=== PATIENT | male | born 1950 | race Caucasian/White ===

== ENCOUNTER 2024-07-18 19:12 | Inpatient (IN) | payer OTHER, MEDICARE ==
[~2024-07-18] VITALS: Ht 167.6 cm; Wt 79.0 kg
--- NOTE | 2024-07-18 20:53 | ELECTROCARDIOGRAPH REPORT ---
[facility] Test Date: 2024-07-18 Test Time: 20:50:32 Pat Name: KERI RÍOS Department: [facility] Patient ID: [facility]-[id number] Room: Gender: M Bicycle Mechanic: MITCHEL : 1950 Requested By: ADITYA FUNG Order Number: [id number] Reading MD: Dr. Aditya Fung Measurements Intervals [place] Rate: 89 P: 40 [place]: 139 QRS: 115 QRSD: 132 T: 6 QT: 409 QTc: 498 Interpretive Statements Atrial-paced complexes RBBB and LPFB Electronically Signed On 07-18-2024 21:38:[address] Aditya Fung Please click the below link to view image of tracing.
[2024-07-18 21:04] LABS: BASOPHILS % (AUTO) 0.1 % (0-1); EOSINOPHILS % (AUTO) 0 % (0-6); HEMATOCRIT 29.2 % (42.0-52.0); HEMOGLOBIN 9.8 g/dl (14.0-17.9); LYMPHOCYTES # (AUTO) 1.1 X10'3 (1.1-4.8); MEAN CORPUSCULAR HEMOGLOBIN 27.4 PG (27.0-31.0); MEAN CORPUSCULAR HGB CONC 33.5 g/dL (33.0-36.5); MEAN CORPUSCULAR VOLUME 81.8 FL (78-98); MEAN PLATELET VOLUME 8.2 FL (7.4-10.4); MONOCYTES # (AUTO) 1.1 X10'3 (0-0.9); MONOCYTES % (AUTO) 6.9 % (2-12); NEUTROPHILS # (AUTO) 13.2 X10'3 (1.8-7.7); PLATELET COUNT 256 X10'3 (140-440); RED BLOOD COUNT 3.57 X10'6 (4.70-6.10); RED CELL DISTRIBUTION WIDTH 13.6 % (11.5-14.5); WHITE BLOOD COUNT 15.3 X10'3 (4.5-11.0)
--- NOTE | 2024-07-18 21:09 | RADIOLOGY REPORT ---
CHEST RADIOGRAPH Indication: aloc Technique: Single frontal view of the chest was obtained Comparison: None FINDINGS: Lines and Tubes: None Lungs: No focal consolidation. Large gas distended hiatal hernia. Pleura: No effusion. No pneumothorax. Cardiomediastinal contours: Unremarkable Bones: No acute osseous abnormality. IMPRESSION: 1. No acute cardiopulmonary disease. 2. Gas distended hiatal hernia.
[2024-07-18 21:14] LABS: ALANINE AMINOTRANSFERASE 39 U/L (12-78); ALBUMIN 3.2 G/DL (3.4-5.0); ALBUMIN/GLOBULIN RATIO 1.1 (1.1-1.5); ALKALINE PHOSPHATASE 80 IU/L (46-116); ANION GAP 7 (8-16); ASPARTATE AMINO TRANSFERASE 24 U/L (10-37); BILIRUBIN,DIRECT 0.2 MG/DL (0-0.3); BILIRUBIN,TOTAL 0.5 MG/DL (0.1-1.0); BLOOD UREA NITROGEN 37 MG/DL (7-18); CALCIUM 8.5 MG/DL (8.5-10.1); CHLORIDE 103 MMOL/L (99-107); GLUCOSE 120 MG/DL (70-104); POTASSIUM 3.6 MMOL/L (3.5-5.1); SODIUM 138 MMOL/L (135-145); TOTAL CARBON DIOXIDE 27.6 MMOL/L (24-32); TOTAL PROTEIN 6.2 G/DL (6.4-8.2); eCRCL 59 ML/MIN; eGFR 73 ML/MIN
[2024-07-18 21:18] LABS: ETHANOL < 10 MG/DL (<10)
--- NOTE | 2024-07-18 21:30 | RADIOLOGY REPORT ---
Clinical History aloc Comparison None Technique: All CT scans at this medical facility are performed using dose modulation techniques as appropriate t o a performed exam including the following: Automated exposure control was utilized; adjustment of th e mA and/or kV according to patient size; and use of iterative reconstruction technique. All CT studies are reported to the Dose Index Registry of the [employer]. Without Contrast Radiation Dose: CTDI (mGy): 50.53; DLP (mGy-cm): 925.53 KERI RÍOS, [id number] FINDINGS: Parenchyma: No evidence for acute hemorrhage, mass or midline shift. Periventricular hypodensities a re present bilaterally, consistent with chronic microvascular ischemic changes. Extra-axial spaces: Within normal limits. Ventricles: Mildly enlarged, consistent with central atrophy. Sulci: Prominent size, consistent with generalized atrophy. Mass effect: Within normal limits. Basilar cisterns: Within normal limits. Calvarium: Within normal limits. Facial bones: Within normal limits. Orbits: Within normal limits. Sinuses/mastoids: Within normal limits. Soft tissues: Within normal limits. IMPRESSION: No evidence for acute intracranial findings. Changes consistent with moderate chronic microvascular ischemic changes and cortical atrophy. Calvarium intact. This report was electronically signed by Donal Hernandez MD on 07/18/2024 9:26:57 PM.
--- NOTE | 2024-07-18 22:07 | Physician Documentation ---
History of Present Illness ~ Chief Complaint: ALOC Stated Complaint: ALTURED Time Seen by MD: 22:04 OK to notify your PCP?: Yes Source: patient, RN/MD, EMS, EMS notes reviewed, other Mode of Arrival: EMS Exam Limitations: clinical condition (altered) HPI 73 year old male, on gabapentin for chronic pain, brought to the ED via EMS from home due to concerns of altered mental status, seemingly noted by scientist engineer according to EMS run sheet. Patient currently describes being very tired because he has been awake for four days; apparently he has a history of insomnia. He also reports recent black stools and tangentially describes accidentally eating glass, but does not report when he did this. He denies heavy alcohol or NSAID consumption. He was also concerned that he was poison four days ago but is unable to elaborate further. Patient states he lives alone with his cat. Unable to obtain complete history of present illness due to patient's altered mental status Airport Location Manager's phone number: [phone] Medication Reconciliation Allergies: Coded Allergies: No Known Allergies (Unverified , 07/18/24) Scheduled Gabapentin (Gabapentin), 1 CAP PO HS, (Reported) Quetiapine Fumarate* (Seroquel*), 1 TAB PO HS, (Reported) Past Medical History Past Medical History: Chronic Pain Past Surgical History: no surgical history Alcohol Use: None Drug Use: none Lives In: Home Unable to obtain complete PMH: altered mental status Review of Systems Unable to obtain complete ROS: altered mental status Physical Exam Vital Signs: RN Vital Signs have been reviewed: Yes, Temperature: 97.4, Source: Oral, Heart Rate: 91, Respiratory Rate: 19, BP: 137/85, Pulse Oximetry: 100, Weight: 79.000 Pulse Oximetry Reflects: adequate oxygenation Physical Exam General: The patient is well developed, well nourished, nontoxic appearing and is in no acute distress. Skin: [place], warm and dry with no rashes. HEENT: Head was normocephalic and atraumatic. Chest: Clear to auscultation bilaterally without wheezes, rales or rhonchi. No accessory muscle use. No dullness to percussion. Heart: Rate regular and rhythmic. S1, S2. No murmurs. Palpation of the chest wall was normal. No rubs or thrills. Abdomen: Soft, nontender and nondistended. Positive bowel sounds. No guarding or rebound. 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 Extremities: No cyanosis, clubbing or edema. The patient moves all ex tremities. Pulses were equal and symmetric. Neurologic: Some confusion. Motor and sensation grossly intact. Cranial nerves II-XII grossly intact. A & O x3. Progress Progress Note 2256: Hospitalist paged. 2304: Admission orders placed by internal medicine resident. Results/Orders Reviewed/noted all lab results: Yes Results/Orders Medications Received in ER Medications (Trade) Dose Ordered Sig/Agnieszka Route PRN Reason Start Time Stop Time Status Last Admin Dose Admin Sodium Chloride 1,000 ml @ 200 mls/hr Q5H ONCE IV 07/18/24 22:25 07/19/24 03:24 07/18/24 23:19 200 MLS/HR (Protonix 40mg IV) 80 mg ONCE ONCE IV 07/18/24 22:45 07/18/24 22:46 DC 07/18/24 23:20 80 MG Vital Signs 07/18/24 07/18/24 07/18/24 19:15 19:25 19:36 Temp 97.2 97.4 Pulse 94 91 Resp 12 15 19 B/P (MAP) 142/84 137/85 (102) Pulse Ox 99 100 Laboratory Tests Test 07/18/24 20:52 07/18/24 22:20 White Blood Count 15.3 H Red Blood Count 3.57 L Hemoglobin 9.8 L Hematocrit 29.2 L Mean Corpuscular Volume 81.8 Mean Corpuscular Hemoglobin 27.4 Mean Corpuscular Hemoglobin Concent 33.5 Red Cell Distribution Width 13.6 Platelet Count 256 Mean Platelet Volume 8.2 Neutrophils (%) (Auto) 86.0 H Lymphocytes (%) (Auto) 7.0 L Monocytes (%) (Auto) 6.9 Eosinophils (%) (Auto) 0 Basophils (%) (Auto) 0.1 Neutrophils # (Auto) 13.2 H Lymphocytes # (Auto) 1.1 Monocytes # (Auto) 1.1 H Eosinophils # (Auto) 0.0 Basophils # (Auto) 0.0 CBC Comment Prothrombin Time 10.9 INR International Normalized Ratio 1.1 Activated Partial Thromboplast Time 22 Coagulation Comments Sodium Level 138 Potassium Level 3.6 Chloride Level 103 Carbon Dioxide Level 27.6 Anion Gap 7 L Blood Urea Nitrogen 37 H Creatinine 1.00 Estimated GFR/1.73 m2 73 BUN/Creatinine Ratio 37.0 H Glucose Level 120 H Calcium Level 8.5 Magnesium Level 2.0 Total Bilirubin 0.5 Direct Bilirubin 0.2 Aspartate Amino Transf (AST/SGOT) 24 Alanine Aminotransferase (ALT/SGPT) 39 Alkaline Phosphatase 80 Troponin I High Sensitivity 7 Total Protein 6.2 L Albumin 3.2 L Globulin 3.0 Albumin/Globulin Ratio 1.1 Lipase 18 Chemistry Comments Ethyl Alcohol Level < 10 Stool Occult Blood Positive H EKG/XRAY/CT/US/VASC/MRI EKG : Additional Comment Test Date: 2024-07-18 Test Time: 20:50:32 Pat Name: KERI RÍOS Department: [facility] Patient ID: [facility]-[id number] Room: Gender: Farm Operations Manager: : 1950 Requested By: PATRICK MENDOSA Order Number: [id number] Reading MD: Dr. Patrick Mendosa Measurements Intervals [place] Rate: 89 P: 40 [place]: 139 QRS: 115 QRSD: 132 T: 6 QT: 409 QTc: 498 Interpretive Statements Atrial-paced complexes RBBB and LPFB Electronically Signed On 07-18-2024 21:38:[address] Patrick Mendosa (interpreted by me) Chest X-Ray : Interpreted By: radiologist Views: 1 VIEW Additional Comments CHEST RADIOGRAPH Indication: aloc Technique: Single frontal view of the chest was obtained Comparison: None FINDINGS: Lines and Tubes: None Lungs: No focal consolidation. Large gas distended hiatal hernia. Pleura: No effusion. No pneumothorax. Cardiomediastinal contours: Unremarkable Bones: No acute osseous abnormality. IMPRESSION: 1. No acute cardiopulmonary disease. 2. Gas distended hiatal hernia. Reviewed by tn, Dr. Mendosa CT #1: Interpreted By: radiologist CT: head With Contrast?: No Impression Clinical History aloc Comparison None Technique: All CT scans at this medical facility are performed using dose modulation techniques as appropriate to a performed exam including the following: Automated exposure control was utilized; adjustment of the mA and/or kV according to patient size; and use of iterative reconstruction technique. All CT studies are reported to the Dose Index Registry of the [employer]. Without Contrast Radiation Dose: CTDI (mGy): 50.53; DLP (mGy-cm): 925.53 RÍOS KERI, [id number] FINDINGS: Parenchyma: No evidence for acute hemorrhage, mass or midline shift. Periventricular hypodensities are present bilaterally, consistent with chronic microvascular ischemic changes. Extra-axial spaces: Within normal limits. Ventricles: Mildly enlarged, consistent with central atrophy. Sulci: Prominent size, consistent with generalized atrophy. Mass effect: Within normal limits. Basilar cisterns: Within normal limits. Calvarium: Within normal limits. Facial bones: Within normal limits. Orbits: Within normal limits. Sinuses/mastoids: Within normal limits. Soft tissues: Within normal limits. IMPRESSION: No evidence for acute intracranial findings. Changes consistent with moderate chronic microvascular ischemic changes and cortical atrophy. Calvarium intact. This report was electronically signed by Donal Hernandez MD on 07/18/2024 9:26:57 PM. Reviewed by me (Dr. Mendosa) CT #2: Interpreted By: radiologist CT: abdomen/pelvis With Contrast?: No Impression Clinical History ABD PAIN, possible glass foreign body Comparison None Technique: All CT scans at this medical facility are performed using dose modulation techniques as appropriate to a performed exam including the following: Automated exposure control was utilized; adjustment of the mA and/or kV according to patient size; and use of iterative reconstruction technique. All CT studies are reported to the Dose Index Registry of the [employer]. Contrast: OMNIPAQUE 300, 100ML Radiation Dose: CTDI (mGy): 20.46; DLP (mGy-cm): 1067.88 KERI RÍOS, [id number] FINDINGS: Lower chest: Partially imaged large gastric hiatus hernia containing the entire stomach as well as the pancreatic tail and part of the body associated with adjacent bilateral pulmonary atelectasis. Small left pleural effusion Liver: Tiny subcentimeter hepatic cystic lesions. Gallbladder: Unremarkable Pancreas: Partially imaged large gastric hiatus hernia containing the entire stomach as well as the pancreatic tail and part of the body . Diffuse pancreatic fatty infiltration Spleen: Unremarkable Adrenals:Unremarkable Kidneys: 4 mm nonobstructive right mid renal pole calcified calculus. Right renal cyst Stomach:Partially imaged large gastric hiatus hernia containing the entire stomach as well as the pancreatic tail and part of the body . Evaluation for volvulus cannot be fully performed due to incomplete imaging of the stomach Bowel:Evaluation of the bowel is limited and incomplete due to lack of oral contrast. No hyperdense foreign body is detected The small bowel is grossly unremarkable. Diverticulosis of the left hemicolon with no evidence of acute diverticulitis. Normal appendix Urinary bladder:Unremarkable Reproductive organs:No pelvic masses Peritoneum, retroperitoneum, lymphadenopathy:Unremarkable Vascular structures:Unremarkable Abdominal wall: Tiny uncomplicated fat-containing umbilical hernia Musculoskeletal:No acute osseous abnormality. Degenerative changes of the skeleton. L4 superior vertebral endplate compression fracture IMPRESSION: No detectable hyperdense foreign body. Partially imaged large gastric hiatus hernia containing the entire stomach and the pancreatic head and tail This report was electronically signed by Jona Wright MD on 07/19/2024 12:31:41 AM. Reviewed by me, Dr. Mendosa. Departure Time of Disposition: 22:56 Disposition: ADMITTED INPATIENT Admitted to Inpatient Unit: yes, to hospitalist Impression: Primary Impression: Upper GI bleeding Additional Impressions: Symptomatic anemia Altered mental status Qualified Codes: R41.82 - Altered mental status, unspecified Generalized weakness Condition: Guarded Signature Scribe Signature: Scribed for Patrick Mendosa MD by Ken Sumner . 07/18/24 22:13 Attestation: The note accurately reflects work and decisions made by me.Patrick Mendosa MD 07/18/24 22:06 PATRICK MENDOSA MD July 18, 2024 22:07 KEN GONZALEZ July 18, 2024 22:18
[2024-07-18] MEDS ORDERED: pantoprazole 40mg IV 80 MG in normal saline 100ml IV soln 100 ML IV ONE (22:25)
[2024-07-18 22:30] LABS: OCCULT BLOOD STOOL POSITIVE (Neg)
[2024-07-18] MEDS ORDERED: iohexol 300mg/ml 100ml inj. ONE (22:31)
[2024-07-18 22:37] LABS: LIPASE 18 U/L (16-77)
[2024-07-18 22:41] LABS: APTT 22 SECONDS (22-32); INR 1.1 INR; PROTHROMBIN TIME 10.9 SECONDS (9.0-12.0)
[2024-07-18] MEDS ORDERED: ondansetron/PF 4mg/2ml inj IV PRN (23:10)
[2024-07-18] MEDS ORDERED: morphine 2 MG/ML inj. syringe IV PRN (23:10)
[2024-07-18] MEDS ORDERED: acetaminophen 325mg tablet PO PRN (23:10)
[2024-07-18] MEDS ORDERED: mag hydrox/Alum hydrox/simeth 30ml oral suspension PO PRN (23:10)
[2024-07-18] MEDS ORDERED: potassium Cl 40MEQ/1/2NS 520ml 520 ML IV PRN (23:10)
[2024-07-18] MEDS ORDERED: magnesium Cl slow-release 64mg tablet PO PRN (23:10)
[2024-07-18] MEDS ORDERED: magnesium sulf-water 2g/50mL 50 ML IV PRN (23:10)
[2024-07-18] MEDS ORDERED: potassium Cl 20 mEq SR tablet PO PRN (23:10)
[2024-07-18] MEDS ORDERED: magnesium sulf-water 4G/100mL 100 ML IV PRN (23:10)
[2024-07-18] MEDS ORDERED: magnesium hydroxide 30ml (MOM) UD suspension PO PRN (23:10)
[2024-07-18] MEDS: normal saline 1000ml 1,000 ML IV ONE (23:19)
[2024-07-18] MEDS: pantoprazole 40 MG vial IV ONE (23:20)
[2024-07-18] MEDS ORDERED: GABA-535 PO (23:59)
[2024-07-19] VITALS (25 sets, daily range): BP systolic 90–130; BP diastolic 37–76; PULSE 70–94; RESP 11–20; TEMP 97.1–98.2; O2SAT 18–99
[2024-07-19] MEDS ORDERED: QUET-1 PO
--- NOTE | 2024-07-19 00:34 | RADIOLOGY REPORT ---
Clinical History ABD PAIN, possible glass foreign body Comparison None Technique: All CT scans at this medical facility are performed using dose modulation techniques as appropriate t o a performed exam including the following: Automated exposure control was utilized; adjustment of th e mA and/or kV according to patient size; and use of iterative reconstruction technique. All CT studies are reported to the Dose Index Registry of the [employer]. Contrast: OMNIPAQUE 300, 100ML Radiation Dose: CTDI (mGy): 20.46; DLP (mGy-cm): 1067.88 KERI RÍOS, [id number] FINDINGS: Lower chest: Partially imaged large gastric hiatus hernia containing the entire stomach as well as th e pancreatic tail and part of the body associated with adjacent bilateral pulmonary atelectasis. Sma ll left pleural effusion Liver: Tiny subcentimeter hepatic cystic lesions. Gallbladder: Unremarkable Pancreas: Partially imaged large gastric hiatus hernia containing the entire stomach as well as the p ancreatic tail and part of the body . Diffuse pancreatic fatty infiltration Spleen: Unremarkable Adrenals:Unremarkable Kidneys: 4 mm nonobstructive right mid renal pole calcified calculus. Right renal cyst Stomach:Partially imaged large gastric hiatus hernia containing the entire stomach as well as the skinner creatic tail and part of the body . Evaluation for volvulus cannot be fully performed due to incompl ete imaging of the stomach Bowel:Evaluation of the bowel is limited and incomplete due to lack of oral contrast. No hyperdense foreign body is detected The small bowel is grossly unremarkable. Diverticulosis of the left hemicol on with no evidence of acute diverticulitis. Normal appendix Urinary bladder:Unremarkable Reproductive organs:No pelvic masses Peritoneum, retroperitoneum, lymphadenopathy:Unremarkable Vascular structures:Unremarkable Abdominal wall: Tiny uncomplicated fat-containing umbilical hernia Musculoskeletal:No acute osseous abnormality. Degenerative changes of the skeleton. L4 superior chato tebral endplate compression fracture IMPRESSION: No detectable hyperdense foreign body. Partially imaged large gastric hiatus hernia containing the entire stomach and the pancreatic head an d tail This report was electronically signed by Jona Wright MD on 07/19/2024 12:31:41 AM.
[2024-07-19] MEDS: morphine 2 MG/ML inj. syringe IV PRN (01:52)
[2024-07-19] MEDS: pantoprazole 40MG/NS 100ML BAG 100 ML IV SCH (02:00)
--- NOTE | 2024-07-19 02:38 | HISTORY AND PHYSICAL-Residence ---
History & Physical Providers to CC Resident Creating Document: DAMIAN FLORESISIDORORONNY YVAN CC: LATOYA FLOREZ MD ~ History of Present Illness Reason for Admit\Complaint: Dark stools History of Present Illness Patient is a 73-year-old male with history of prediabetes and GERD who came to the ED due to dark stools. Patient reports that for the past four days he has been feeling sick described as generalized weakness, stomach pain, acid reflux, and episodes of diarrhea. Two days ago he reports he started with black tarry stools with two large episodes today. He denies the use of NSAIDs, blood thinners or significant alcohol intake. He also denies fevers, chills, shortness of breath, chest pain, palpitations or any other subjective symptoms. Allergies: Coded Allergies: No Known Allergies (Unverified , 07/18/24) Home Medications Home Medications Active Reported Seroquel* (Quetiapine Fumarate) 100 Mg Tablet 1 Tab PO HS 30 Days Gabapentin 400 Mg Capsule 1 Cap PO HS 30 Days Past Medical History Past Medical History Prediabetes GERD Past Surgical History Surgical History Comment Bilateral eye surgery as a baby Right wrist ganglion cyst x2 Family History Family History: FH: breast cancer MOTHER Past Social History Smoking: Non-Smoker Alcohol Use: None Drug Use: None Lives with: Alone Lives In: Home ROS ROS All systems were reviewed and found negative except for pertinent positives mentioned in HPI Unable to obtain: altered mental status Exam Vitals: Vital Signs Date Time Temp Pulse Resp B/P (MAP) Pulse Ox O2 Delivery O2 Flow Rate FiO2 07/19/24 02:00 90 07/19/24 00:11 97.4 12 138/90 (106) 98 General: General: awake, alert oriented to place, time, and person HEENT: No pallor present, no icterus, moist mucous membranes Neck: No masses and tenderness Resp: Unlabored. Lungs clear to auscultation bilaterally. Heart: Regular Rate and rhythm, normal S1 and S2 without murmur, rub or gallop Abdomen: Soft and mildly tender in epigastrium, no organomegaly, no guarding and rigidity, bowel sounds present Neuro: No weakness in the upper and lower limb muscles, power of the muscles 5/5 bilateral upper and lower muscles, knee reflex present bilaterally. Cranial nerves intact Extremities: No cyanosis,clubbing or edema Skin: Warm and Dry. No lesions Diagnostic Data Last Recorded Lab Results: [id number]/18/[id number] Diagnostic Data: Laboratory Tests Test 07/18/24 20:52 Prothrombin Time 10.9 SECONDS (9.0-12.0) INR International Normalized Ratio 1.1 INR Activated Partial Thromboplast Time 22 SECONDS (22-32) Coagulation Comments Advance Care Planning Advanced Care plannin - 30 Minutes Additional Plan Patient is a 73-year-old male with history of prediabetes and GERD who came to the ED due to dark stools. Admitted for evaluation and management of upper GI bleed. GI bleed, likely upper Normocytic anemia History of GERD Patient with epigastric pain and black tarry stools along with constitutional symptoms No significant history of NSAID, blood thinners or alcohol intake Vitals are stable Hemoglobin is 9.8 Stool occult blood is positive Started on Protonix drip in ED Will consult GI in a.m. NPO after midnight Code Status: Full code GI prophylaxis: Protonix drip Nutrition: NPO PT: Ordered Prognosis: Guarded Disposition: Admit to ortho floor with tele monitoring. Pending GI consult Rnony Simpson MD Internal Medicine Resident PGY-1 Attestation Discussed with resident team Agree with assessment and plan spent 35 minute in care Date of Service: July 19, 2024 Billing Provider: LATOYA FLOREZ MD, LEONARDO LUIS July 19, 2024 02:38 LATOYA FLOREZ MD July 19, 2024 03:24
[2024-07-19 05:02] LABS: BASOPHILS % (AUTO) 0.1 % (0-1); EOSINOPHILS % (AUTO) 0.1 % (0-6); HEMATOCRIT 23.2 % (42.0-52.0); HEMOGLOBIN 7.9 g/dl (14.0-17.9); LYMPHOCYTES # (AUTO) 1.2 X10'3 (1.1-4.8); MEAN CORPUSCULAR VOLUME 82.3 FL (78-98); MEAN PLATELET VOLUME 8.3 FL (7.4-10.4); MONOCYTES # (AUTO) 0.7 X10'3 (0-0.9); NEUTROPHILS # (AUTO) 6.6 X10'3 (1.8-7.7); NEUTROPHILS % (AUTO) 77.8 % (42-75); PLATELET COUNT 190 X10'3 (140-440); RED BLOOD COUNT 2.82 X10'6 (4.70-6.10); RED CELL DISTRIBUTION WIDTH 13.3 % (11.5-14.5); WHITE BLOOD COUNT 8.5 X10'3 (4.5-11.0)
[2024-07-19 05:20] LABS: ALANINE AMINOTRANSFERASE 32 U/L (12-78); ALBUMIN 2.6 G/DL (3.4-5.0); ALKALINE PHOSPHATASE 65 IU/L (46-116); ANION GAP 7 (8-16); ASPARTATE AMINO TRANSFERASE 20 U/L (10-37); BILIRUBIN,TOTAL 0.4 MG/DL (0.1-1.0); BLOOD UREA NITROGEN 29 MG/DL (7-18); BUN/CREATININE RATIO 33.7 (10.0-20.0); CALCIUM 7.9 MG/DL (8.5-10.1); CHLORIDE 108 MMOL/L (99-107); CREATININE 0.86 MG/DL (0.60-1.10); GLUCOSE 105 MG/DL (70-104); MAGNESIUM 1.9 MG/DL (1.5-2.4); POTASSIUM 3.7 MMOL/L (3.5-5.1); SODIUM 141 MMOL/L (135-145); TOTAL CARBON DIOXIDE 26.5 MMOL/L (24-32); TOTAL PROTEIN 5.1 G/DL (6.4-8.2); eCRCL 69 ML/MIN; eGFR 87 ML/MIN
[2024-07-19] MEDS: K and/or MAG REPLACEMENT MC SCH (08:00)
[2024-07-19] MEDS: docusate sod 100mg capsule PO SCH (08:04)
[2024-07-19 08:20] LABS: BILIRUBIN,URINE NEGATIVE (Neg); CLARITY,URINE CLEAR (Clear); COLOR,URINE YELLOW (Yellow); GLUCOSE, URINE NEGATIVE (Neg); KETONES,URINE NEGATIVE (Neg); LEUKOCYTE ESTERASE ,URINE NEGATIVE (Neg); NITRITES, URINE NEGATIVE (Neg); OCCULT BLOOD,URINE NEGATIVE (Neg); PROTEIN,URINE NEGATIVE (Neg); UROBILINOGEN,URINE 0.2 E.U/dL (0.2-1.0)
[2024-07-19 08:32] LABS: URINE AMPHETAMINE SCREEN NEGATIVE (Neg); URINE BARBITUATE SCREEN NEGATIVE (Neg); URINE BENZODIAZEPINES SCREEN NEGATIVE (Neg); URINE CANNABINOID SCREEN NEGATIVE (Neg); URINE COCAINE SCREEN NEGATIVE (Neg); URINE METHADONE SCREEN NEGATIVE (Neg); URINE OPIATE SCREEN POSITIVE (Neg); URINE PHENCYCLIDINE SCREEN NEGATIVE (Neg)
[2024-07-19 08:33] LABS: UA COLLECTION TYPE CLN CATCH MIDSTREAM
--- NOTE | 2024-07-19 10:53 | PROGRESS NOTE- Residence ---
Progress Note - Resident Providers to CC Resident Creating Document: BENEDICTO HERNÁNDEZ, VERITO ~ Antibiotic Timeout Antibiotic Ordered?: No Subjective Primary care physician: [facility]. Marketing Strategy Manager: Tesfaye Pabon ([phone]) The patient has been evaluated at bedside. The patient reports significant improvement of symptoms. Objective Vital Signs Date Time Temp Pulse Resp B/P (MAP) Pulse Ox O2 Delivery O2 Flow Rate FiO2 07/19/24 02:00 90 07/19/24 00:20 18 129/37 (67) 97 Room Air 07/19/24 00:11 97.4 Physical exam: General: Well alert, well oriented, not confused, not agitated, not in acute distress, well cooperated during the physical. HEENT: Conjunctive are pale, sclerae clear, no icterus, pupil is equal in both sides, reactive to light, no ear discharge, no pharyngeal erythema or an edema. Neck: Supple, no JVD, no lymphadenopathy and thyromegaly. Chest: Equal air entry on both lungs, no additional sounds no rhonchi no wheezing at the moment. Cardiovascular: S1-S2 regular sinus rhythm and, regular rate, no gallops, no rubs, no murmurs Abdomen: No visible peristalsis, Bowel sounds present on auscultation, soft, mild tenderness at the level of the epigastrium, no guarding, no rigidity Extremities: No obvious deformities, no pitting edema bilaterally, capillary refill intact, peripheral pulsations are intact on both sides Central Nervous System: No focal neurological deficits, no motor or sensory weakness in all 4 extremities, could move all 4 extremities, 2+ deep tendon reflexes, negative Babinski. Musculoskeletal: No joint swelling, deformities, inflammations, and no scoliosis and back tenderness Skin: Warm and dry. Result Diagram: 07/19/24 0437 07/19/24 0437 Coagulation Studies Laboratory Tests Test 07/18/24 20:52 Prothrombin Time 10.9 SECONDS (9.0-12.0) INR International Normalized Ratio 1.1 INR Activated Partial Thromboplast Time 22 SECONDS (22-32) Coagulation Comments Assessment Assessment 73-year-old male patient came to the hospital with chief complaint of melena. Plan Plan Severe anemia: Normocytic normochromic anemia: GI bleed secondary to gastric ulcers: History of GERD Patient with epigastric pain and black tarry stools along with constitutional symptoms No significant history of NSAID, blood thinners or alcohol intake. Hemoglobin and hematocrit stable. Stool occult blood is positive Continue Protonix drip. Cut Out Operator, Dr. Sotomayor consulted. Impression normal esophagus, nonbleeding gastric ulcers with pigmented material. Biopsied, normal examined duodenum. Nonbleeding gastric ulcer with no stigmata of bleeding. Biopsied. Recommended resume previous diet, continue drip for 24 hours. Pathology follow- up within one week with a developmental mathematics instructor. Omeprazole 40 mg p.o. b.i.d. for three months or until next EGD which we will be in two months for surveillance based on pathology results. Transfuse if hemoglobin levels dropped below seven. Hyperglycemia: Prediabetes: Glucose levels 120. Follow-up hemoglobin A1c. Code status: Full code DVT prophylaxis: SCDs Analgesia/sedation: Morphine Line/tube: PIV GI prophylaxis: Protonix Nutrition: Full liquid diet. PT: Yes Prognosis: Guarded Disposition: The patient underwent EGD today. Showing gastric ulcers. We will continue Protonix drip for 24 hours. Pending physical therapy evaluation. Benedicto Hayes Internal Medicine Resident [facility] Date of Service: July 19, 2024 Billing Provider: ALVA ESCALERA MD, FRANCO LUIS, RES July 19, 2024 10:53
[2024-07-19 11:49] LABS: RED CELL DISTRIBUTION WIDTH 13.3 % (11.5-14.5)
[2024-07-19 11:50] LABS: HEMATOCRIT 24.9 % (42.0-52.0); HEMOGLOBIN 8.2 g/dl (14.0-17.9); MEAN CORPUSCULAR HEMOGLOBIN 27.4 PG (27.0-31.0); MEAN PLATELET VOLUME 9.3 FL (7.4-10.4); PLATELET COUNT 181 X10'3 (140-440); WHITE BLOOD COUNT 9.4 X10'3 (4.5-11.0)
[2024-07-19 12:01] LABS: HEMOGLOBIN A1C 5.4 % (4.5-6.2)
[2024-07-19 12:10] LABS: THYROID STIMULATING HORMONE 1.49 ulU/ml (0.34-4.50)
[2024-07-19] MEDS ORDERED: MIDAZolam 1 MG/ML 5ML VIAL ONE (14:05)
[2024-07-19] MEDS ORDERED: fentaNYL/PF 50MCG/1 ML 2ML syringe ONE (14:05)
[2024-07-19] MEDS ORDERED: LIDOcaine 2% Viscous 15ml cup ONE (14:05)
[2024-07-19 16:58] LABS: HEMATOCRIT 24.8 % (42.0-52.0); HEMOGLOBIN 8.2 g/dl (14.0-17.9); MEAN CORPUSCULAR HEMOGLOBIN 27.5 PG (27.0-31.0); MEAN CORPUSCULAR HGB CONC 32.9 g/dL (33.0-36.5); MEAN CORPUSCULAR VOLUME 83.6 FL (78-98); MEAN PLATELET VOLUME 8.4 FL (7.4-10.4); PLATELET COUNT 181 X10'3 (140-440); RED BLOOD COUNT 2.96 X10'6 (4.70-6.10); RED CELL DISTRIBUTION WIDTH 13.5 % (11.5-14.5)
[2024-07-19] MEDS: quetiapine 100mg tablet PO SCH (20:06)
[2024-07-19] MEDS: gabapentin 400mg capsule PO SCH (20:06)
[2024-07-20 01:29] VITALS: BP 117/70; PULSE 72; RESP 16; TEMP 97.6; O2SAT 95
[2024-07-20 06:00] VITALS: BP 121/62; PULSE 86; RESP 16; TEMP 97.9; O2SAT 95
[2024-07-20 06:41] LABS: BASOPHILS % (AUTO) 0.5 % (0-1); EOSINOPHILS # (AUTO) 0.1 X10'3 (0-0.9); HEMATOCRIT 23.8 % (42.0-52.0); HEMOGLOBIN 7.9 g/dl (14.0-17.9); LYMPHOCYTES # (AUTO) 1.4 X10'3 (1.1-4.8); LYMPHOCYTES % (AUTO) 23.6 % (21-51); MEAN CORPUSCULAR HEMOGLOBIN 27.7 PG (27.0-31.0); MEAN CORPUSCULAR VOLUME 83.8 FL (78-98); MEAN PLATELET VOLUME 8.8 FL (7.4-10.4); MONOCYTES # (AUTO) 0.6 X10'3 (0-0.9); NEUTROPHILS # (AUTO) 3.9 X10'3 (1.8-7.7); NEUTROPHILS % (AUTO) 64.9 % (42-75); PLATELET COUNT 162 X10'3 (140-440); RED BLOOD COUNT 2.84 X10'6 (4.70-6.10); RED CELL DISTRIBUTION WIDTH 13.4 % (11.5-14.5); WHITE BLOOD COUNT 6.1 X10'3 (4.5-11.0)
[2024-07-20 06:51] LABS: ALANINE AMINOTRANSFERASE 27 U/L (12-78); ALBUMIN 2.7 G/DL (3.4-5.0); ALKALINE PHOSPHATASE 66 IU/L (46-116); ANION GAP 3 (8-16); ASPARTATE AMINO TRANSFERASE 18 U/L (10-37); BILIRUBIN,TOTAL 0.3 MG/DL (0.1-1.0); BLOOD UREA NITROGEN 19 MG/DL (7-18); CALCIUM 8.2 MG/DL (8.5-10.1); CHLORIDE 109 MMOL/L (99-107); CREATININE 0.73 MG/DL (0.60-1.10); GLUCOSE 96 MG/DL (70-104); MAGNESIUM 2.2 MG/DL (1.5-2.4); POTASSIUM 3.4 MMOL/L (3.5-5.1); SODIUM 140 MMOL/L (135-145); TOTAL CARBON DIOXIDE 27.9 MMOL/L (24-32); TOTAL PROTEIN 5.4 G/DL (6.4-8.2); eCRCL 81 ML/MIN; eGFR > 90 ML/MIN
[2024-07-20] MEDS: potassium Cl 20 mEq SR tablet PO PRN (08:40)
[2024-07-20] MEDS: pantoprazole 40mg Tablet.DR PO SCH (08:40)
[2024-07-20 08:55] VITALS: RESP 16
[2024-07-20 10:00] VITALS: BP 117/83; PULSE 78; RESP 18; TEMP 97.8; O2SAT 98
[2024-07-20] MEDS ORDERED: PANT-47 PO (12:22)
--- NOTE | 2024-07-20 15:01 | DISCHARGE SUMMARY-Residence ---
Discharge Summary Providers to Resident Creating Document: CORNELIO MASONBENEDICTO LUIS, RES ~ Discharge Summary Admission Diagnosis: GI bleed Hospital Course DATE OF ADMISSION: 07/19/2024 DATE OF DISCHARGE: 07/20/2024. Laboratory: WBC 6.1, RBC 2.84, hemoglobin 7.9, hematocrit 23.8, MCV 83.8, platelet count 162. Sodium 140, potassium 3.4, chloride 109, carbon dioxide 27.9, anion gap three, BUN 19, creatinine 0.73, GFR 90, glucose 96. Imaging: Abdomen/pelvis CT: No detectable hyperdense foreign body. Partially imaged large gastric hiatus hernia containing the entire stomach and the pancreatic head and tail Head CT: No evidence for acute intracranial findings. Changes consistent with moderate chronic microvascular ischemic changes and cortical atrophy. Calvarium intact. Chest x-ray: No acute cardiopulmonary disease. Gas distended hiatal hernia. Discharge Diagnosis\Comment: Severe anemia Normocytic normochromic anemia GI bleed secondary to gastric ulcers History of GERD Hyperglycemia Prediabetes Operations\Procedures: EGD Consultants: Overhead Worker, Dr. Sotomayor Complications: None Condition on DC: Stable New Medications: Pantoprazole Sodium (PROTONIX tablet) 40 Mg Tablet. 40 MG PO BID for 30 Days, #60 TAB.SR Continued Medications: Gabapentin (Gabapentin) 400 Mg Capsule 1 CAP PO HS for 30 Days, #90 CAP 0 Refills Quetiapine Fumarate* (Seroquel*) 100 Mg Tablet 1 TAB PO HS for 30 Days, #30 TAB Discharge Summary: HPI: Patient is a 73-year-old male with history of prediabetes and GERD who came to the ED due to dark stools. Patient reports that for the past four days he has been feeling sick described as generalized weakness, stomach pain, acid reflux, and episodes of diarrhea. Two days ago he reports he started with black tarry stools with two large episodes today. He denies the use of NSAIDs, blood thinners or significant alcohol intake. He also denies fevers, chills, shortness of breath, chest pain, palpitations or any other subjective symptoms. Hospital course: 73-year-old male patient came to the hospital with chief complaint of melena. Hemoglobin and hematocrit was monitored. The patient underwent EGD on 07/18/2024. The patient did not require transfusion of blood. On the EGD nonbleeding gastric ulcers with pigmented material were found at biopsied. Nonbleeding gastric ulcer with no stigmata of bleeding was biopsied. The patient was treated with Protonix drip initially, transitioned to Protonix p.o. b.i.d. the patient remained hemodynamically stable, physical therapy evaluated the patient, the patient is home independent. The patient will be discharged home. Discharge course: The patient remains hemodynamically stable. The patient will be discharged with the following instructions: Come back to the emergency department or call 911 if severe abdominal pain, blood in his stools, shortness of breath, chest pain, severe fatigue is evidenced. Continue taking pantoprazole one tablet every 12 hours for three months. Follow-up with your primary care physician at [facility] within 15 days. Telephone GI office of Dr. Sotomayor for pathology results in one week. You will require repeat endoscopy in two months for surveillance based on pathology results. Avoid NSAIDs medications. Avoid to eat spicy food, caffeine, citrus fruits, peppermint, chocolate. Strong recommendation to avoid alcohol. Vital Signs Date Time Temp Pulse Resp B/P (MAP) Pulse Ox O2 Delivery O2 Flow Rate FiO2 07/20/24 10:00 97.8 78 18 117/83 (94) 98 Room Air 07/20/24 08:55 0.0 Physical exam: General: Well alert, well oriented, not confused, not agitated, not in acute distress, well cooperated during the physical. HEENT: Conjunctive are pale, sclerae clear, no icterus, pupil is equal in both sides, reactive to light, no ear discharge, no pharyngeal erythema or an edema. Neck: Supple, no JVD, no lymphadenopathy and thyromegaly. Chest: Equal air entry on both lungs, no additional sounds no rhonchi no wheezing at the moment. Cardiovascular: S1-S2 regular sinus rhythm and, regular rate, no gallops, no rubs, no murmurs Abdomen: No visible peristalsis, Bowel sounds present on auscultation, soft, non tenderness, no guarding, no rigidity Extremities: No obvious deformities, no pitting edema bilaterally, capillary refill intact, peripheral pulsations are intact on both sides Central Nervous System: No focal neurological deficits, no motor or sensory weakness in all 4 extremities, could move all 4 extremities, 2+ deep tendon reflexes, negative Babinski. Musculoskeletal: No joint swelling, deformities, inflammations, and no scoliosis and back tenderness Skin: Warm and dry. *Problems/Diagnosis: (1) Peptic ulcer disease Status: Acute (2) Upper GI bleeding Status: Acute (3) Symptomatic anemia Status: Acute Total Time Spent on D/C: Up to 30 Minutes Date of Service: July 20, 2024 Billing Provider: KASSANDRA FRAUSTO MD, FRANCO LUIS, RES July 20, 2024 15:01
--- NOTE | 2024-07-22 18:08 | PATHOLOGY REPORT ---
[facility] [address] [place] [address] SURGICAL PATHOLOGY REPORT CaseNumber: [id number] Surgeon:Giovanni Mora NP CLINICAL INFORMATION CLINICAL INFORMATION: Acute post hemorrhagic anemia, Melena. DIAGNOSIS DIAGNOSIS: A.STOMACH, ANTRUM; BIOPSY - MILD CHRONIC INFLAMMATION. - NEGATIVE FOR INTESTINAL METAPLASIA. - NEGATIVE FOR DYSPLASIA/NEOPLASIA. DIAGNOSIS: B.STOMACH, BODY; BIOPSY - BENIGN ULCER, ACUTE. - NEGATIVE FOR INTESTINAL METAPLASIA. - NEGATIVE FOR H. PYLORI BY IMMUNOPEROXIDASE STUDY. - NEGATIVE FOR DYSPLASIA/NEOPLASIA. MICROSCOPIC DESCRIPTION A. STOMACH, ANTRUM MICROSCOPIC DESCRIPTION: One H&E stained slide from part A is examined. Present are several pieces of gastric mucosa. Some contain specialized glands suggesting transitional zone. There is a mild chroni c inflammatory infiltrate composed predominantly of lymphocytes with lesser numbers of plasma cells. There is no significant active inflammation, no intestinal metaplasia by routine light microscopy, an d no dysplasia/neoplasia. B. STOMACH, BODY MICROSCOPIC DESCRIPTION: One H&E stained slide from part B is examined. Present is gastric body mucos a, which is ulcerated. There is ulcero-necrotic material and fibrino-neutrophilic exudate. There is n o intestinal metaplasia by routine light microscopy and no dysplasia/neoplasia. Immunoperoxidase stud y for H. pylori does not highlight organisms. (jf) GROSS DESCRIPTION A. STOMACH, ANTRUM GROSS DESCRIPTION: Received in a container of formalin labeled with the patient's name, number, and " antrum BX" are 3 pieces of motley tissue 0.3-0.5 x 0.1 x 0.1 cm. The specimen is entirely submitted as A 1. The time at which the specimen was removed was 1441. The time at which the specimen was placed in formalin was 1445. B. STOMACH, BODY GROSS DESCRIPTION: Received in a container of formalin labeled with the patient's name, number, and " gastric body ulcer BX" are 4 pieces of motley tissue 0.2-0.6 x 0.2 x 0.1 cm. The specimen is entirely henning bmitted as B1. The time at which the specimen was removed was 1443. The time at which the specimen wa s placed in formalin was 1445. Electronically signed by: Sudeep Edwards M.D. 07/22/2024 5:33:00 PM
== END 2024-07-20 16:21 | disposition home or self-care (01) | DRG 379 ==
LOC: ER 19:13 → ED HOLD 23:12 → ORTHO 4S 07-19 01:38
PROVIDERS: ADMIT Internal Medicine Pulmonary Disease; ATTEND Internal Medicine
PROC: BW211ZZ Computerized Tomography (CT Scan) of Abdomen and Pelvis using Low Osmolar Contrast (ICD-10-PCS; principal; 2024-07-18)
PROC: 0DB68ZX Excision of Stomach, Via Natural or Artificial Opening Endoscopic, Diagnostic (ICD-10-PCS; 2024-07-19)
DX: K25.4 Chronic or unspecified gastric ulcer with hemorrhage (principal); D64.9 Anemia, unspecified; G89.29 Other chronic pain; K21.9 Gastro-esophageal reflux disease without esophagitis; R73.03 Prediabetes; R73.9 Hyperglycemia, unspecified; Z79.899 Other long term (current) drug therapy
CPT/HCPCS: 36415; 43239; 70450; 71045; 74177; 80048; 80053; 80076; 80305; 80320; 81003; 82272; 83036; 83605; 83690; 83735; 84145; 84443; 84484; 85025; 85027; 85610; 85730; 86885; 86900; 86901; 87040; 87081; 93005; 97110; 97116; 97162; 99152; 99153; 99285; A4620; G0378; J2250; J2270; J2470; J3010; J7030; Q9967

== ENCOUNTER 2024-07-23 07:44 | Emergency (ER) | payer OTHER, MEDICARE ==
[~2024-07-23] VITALS: Ht 160 cm; Wt 78.6 kg
[~2024-07-23 07:44] MED LIST: GABA-535 PO; PANT-47 PO; QUET-1 PO
--- NOTE | 2024-07-23 07:57 | Physician Documentation ---
History of Present Illness Chief Complaint: Flank Pain Stated Complaint: BACK PAIN Time Seen by MD: 07:49 HPI It is important to note that the gentleman is a poor historian. This is a 73-year-old gentleman with a history of schizophrenia who comes in for evaluation of right flank pain that woke him from sleep at 6:00 a.m.. No obvious trigger provocation. No palliating or aggravating factors were elicited with the patient. He did not attempt to treat his symptoms. Somehow he attributes that to the fact that he had turkey last night. Describes pain as moderate to severe, 9/10 at this time and describes it as raw meat". Pain is not migratory nonradiating. Denies use of tobacco, alcohol or illicit substances. He takes quetiapine and gabapentin Medication Reconciliation Allergies: Coded Allergies: No Known Allergies (Unverified , 07/23/24) Scheduled Gabapentin (Gabapentin), 1 CAP PO HS, (Reported) Pantoprazole Sodium (PROTONIX tablet), 40 MG PO BID Quetiapine Fumarate* (Seroquel*), 1 TAB PO HS, (Reported) Past Medical History Past Medical History: Chronic Pain Past Surgical History: no surgical history Patient History: FH: breast cancer MOTHER Alcohol Use: None Drug Use: none Lives with: Alone Lives In: Home Review of Systems ROS 10 point review of systems was performed and unless noted above in HPI is negative for acute process/complaint. Physical Exam Vital Signs: Temperature: 97.9, Source: Oral, Heart Rate: 81, Respiratory Rate: 18, BP: 135/84, Pulse Oximetry: 97, Weight: 78.640 Oxygen Flow Rate: 0 Physical Exam GENERAL: Awake, alert, oriented, GCS 15, no apparent distress, non-toxic appearing, answers questions, follows commands appropriately. HEENT: Atraumatic, normocephalic, pupils equal, extraocular muscles intact, sclerae anicteric, mucus membranes moist, oropharynx is clear, no stridor. NECK: supple, full active range of motion, trachea midline, no thyromegaly, no lymphadenopathy, no JVD. CARDIOVASCULAR: regular rate/rhythm, no murmurs/gallops/rubs, Pulses are 2+ in all extremities and symmetric. Capillary refill less than 2 seconds. PULMONARY: Nonlabored, good air movement ,no respiratory distress, speaking in full sentences, clear to auscultation bilaterally, no wheezing, no ronchi, no rales, no accessory muscle use. GASTROINTESTINAL: Soft, non-tender, non-distended, normal active bowel sounds, no organomegaly, no pulsatile masses, no CVA tenderness. NEUROLOGIC: Lucid with normal mental status. Normal facial symmetry. Moves all extremities symmetrically and with purpose. No truncal ataxia. Speech is fluid without evidence of dysarthria or aphasia, no focal deficits appreciated. MUSCULOSKELETAL: There is full range of motion of all extremities. There is no joint pain or joint swelling or joint erythema. There is no muscle pain or tenderness or swelling. EXTREMITIES: warm, well-perfused, no cyanosis, no clubbing, no edema, no acute deformities. Skin: warm, dry, no rashes or lesions, no jaundice, no petechiae orpurpura. No ecchymosis. PSYCHIATRIC: Normal affect, normal insight, normal concentration. Focused exam: [] No guarding or rebound. Unable to reproduce gentleman's complaint. Progress Results/Orders Results/Orders Vital Signs 07/23/24 07:46 Temp 97.9 Pulse 81 Resp 18 B/P (MAP) 135/84 Pulse Ox 97 O2 Flow Rate 0 Medical Decision Making Findings Facility Status: ED Holds, RME process The plan was discussed with the patient, who demonstrates clear understanding of the plan and is in agreement with the plan unless otherwise noted in the chart. All questions have been answered, all concerns were addressed unless otherwise documented. I was available throughout their ED stay for frequent reassessment and questions. Differential Diagnoses (considered and possible or likely): [Differential diagnosis considered includes renal colic, lumbago, radiculopathy, sciatica, acute appendicitis, acute cholecystitis, pancreatitis, gastritis, PUD, diverticulitis, mesenteric ischemia, abdominal aortic aneurysm, bowel obstruction, enteritis, colitis, fecal impaction, volvulus, IBS, inflammatory bowel disease, specific food intolerance, peritonitis, perforated viscous, malignancy, UTI, abscess, and abdominal pain NOS. History, physical exam, and workup exclude many of the more serious causes listed above. ] ??Differential Diagnoses (considered and unlikely, not requiring evaluation currently): [Clinically no evidence of trauma]Aortic/great vessels dissection was considered but it is unlikely based on absence of ripping, tearing, migratory chest pain, absence of syncope or focal neurologic deficits, physical examination indicating equal and symmetric pulses. MDM Data Please see HPI for the following: Independent Historians and external Records Review. Historian: [Patient] Independent Historians: ?[EMS, record review] Medication Management: [Reviewed medication list] Social History and determinants: [Reviewed] Please see the body of the note for the following: Any independent interpretations of ECG, imaging studies. All vitals signs/haemodynamics, ordered tests were independently reviewed and interpreted by myself. Nursing triage complaint and vitals reviewed, additional nursing notes were r eviewed as available and I agree unless otherwise noted or documented in contradiction in the chart Vital Signs: Independently reviewed Labs: Independently interpreted Imaging: Independently interpreted Old Medical Records: Independently reviewed, see [facility] for relevant summary and information Pulse Oximetry: [99%] interpreted as [normal on room air] by me [Detention Attendant: [Regular Rate, Regular rhythm, no ectopy, NSR] reviewed and interpreted by me] Additionally notably showing: [Hemodynamically stable. Unremarkable workup. No evidence of UTI. CT shows no acute intra-abdominal process, unchanged from prior.] Tests considered but not ordered include: [Not applicable] Social Determinants of Health Impact: Patient was evaluated in [facility], or [facility] [place] to healthcare due to below par ratio of patient to medical providers. [] Comorbid Conditions Impacting Present Evaluation and Care/Treatment: [Non] Management Discussions with other Healthcare Providers: [None] Treatment and Disposition Medication Management (Given or considered): [Pain management]. See EMR for details Consideration for Hospitalization/Escalation/Deescalation of Care: Admission for observation has been considered, [however the patient is able to tolerate p.o., their symptoms are controlled, they are able to rely on oral medications, and their chief complaint/diagnosis can be managed on outpatient basis.] ?ED Course:?[No clinical deterioration] ?Shared decision making:? Patient is hemodynamically stable for discharge home with follow with their primary care provider. [ ] Specific and cautious return precautions provided and discussed with full understanding. Any incidental findings were also discussed and follow up recommendations given. [] All questions answered. Patient/family were able to verbalize back return precautions. Patient/family agree to plan. Copies of imaging and laboratory studies were provided. Code status:?FULL Please see the full Electronic Medical Record for full details of nursing documentation, medications list, other records of complete past medical history and conditions, vital signs, laboratory studies, and any radiologic study interpretations by radiologists. Portions of this note were completed using doxo dictation software and as a result there may exist minor errors in spelling. I have reviewed elements of past family and social history and agree as included in note. Departure Disposition: HOME / SELF CARE / HOMELESS Impression: Primary Impression: Right flank pain Condition: Improved Discharge Instructions: Chronic Back Pain Referrals: NO PRIMARY CARE PROVIDER (PCP) Education Educated: Patient Educated regarding: diagnosis, treatment, prognosis, need for follow up Signature Scribe Signature: No scribe Attestation: This note accurately reflects clinical decisions, work performed by myself, DO ROSA Chino NICHOLAS M DO July 23, 2024 07:57
[2024-07-23] MEDS ORDERED: iohexol 300mg/ml 100ml inj. ONE (08:12)
[2024-07-23 08:14] LABS: HEMATOCRIT 29.9 % (42.0-52.0); HEMOGLOBIN 9.8 g/dl (14.0-17.9); MEAN CORPUSCULAR HEMOGLOBIN 27.9 PG (27.0-31.0); MEAN CORPUSCULAR HGB CONC 32.7 g/dL (33.0-36.5); MEAN CORPUSCULAR VOLUME 85.2 FL (78-98); PLATELET COUNT 289 X10'3 (140-440); RED BLOOD COUNT 3.51 X10'6 (4.70-6.10); RED CELL DISTRIBUTION WIDTH 14.2 % (11.5-14.5); WHITE BLOOD COUNT 6.5 X10'3 (4.5-11.0)
[2024-07-23] MEDS: ketorolac trometh 30MG/ML vial 30 MG/ML VIAL IV ONE (08:21)
[2024-07-23 08:32] LABS: ALANINE AMINOTRANSFERASE 42 U/L (12-78); ALBUMIN 3.3 G/DL (3.4-5.0); ALKALINE PHOSPHATASE 100 IU/L (46-116); ANION GAP 9 (8-16); ASPARTATE AMINO TRANSFERASE 28 U/L (10-37); BILIRUBIN,TOTAL 0.4 MG/DL (0.1-1.0); BLOOD UREA NITROGEN 14 MG/DL (7-18); BUN/CREATININE RATIO 16.9 (10.0-20.0); CALCIUM 9.2 MG/DL (8.5-10.1); CHLORIDE 105 MMOL/L (99-107); CREATININE 0.83 MG/DL (0.60-1.10); GLUCOSE 102 MG/DL (70-104); LIPASE 74 U/L (16-77); POTASSIUM 3.5 MMOL/L (3.5-5.1); SODIUM 144 MMOL/L (135-145); TOTAL PROTEIN 6.5 G/DL (6.4-8.2); eCRCL 64 ML/MIN; eGFR > 90 ML/MIN
[2024-07-23 09:39] LABS: TOTAL CELLS COUNTED 100
[2024-07-23 09:40] LABS: ANISOCYTOSIS 1+; PLATELET ESTIMATE NORMAL; POLYCHROMASIA FEW
[2024-07-23 09:41] LABS: BURR CELLS FEW
[2024-07-23 09:59] LABS: BILIRUBIN,URINE NEGATIVE (Neg); COLOR,URINE YELLOW (Yellow); GLUCOSE, URINE NEGATIVE (Neg); KETONES,URINE 40 mg/dl (Neg); LEUKOCYTE ESTERASE ,URINE NEGATIVE (Neg); NITRITES, URINE NEGATIVE (Neg); OCCULT BLOOD,URINE NEGATIVE (Neg); PROTEIN,URINE NEGATIVE (Neg); UROBILINOGEN,URINE 0.2 E.U/dL (0.2-1.0)
[2024-07-23 10:02] VITALS: BP 126/79; PULSE 73; RESP 15; O2SAT 95
--- NOTE | 2024-07-23 10:04 | RADIOLOGY REPORT ---
Exam: CT CT ABDOMEN PELVIS W/ IV CONTRAST History: Right flank pain COMPARISON: CT CT ABDOMEN PELVIS W/ IV CONTRAST on DOS: 07/18/24 Technique: Multidetector spiral CT of the abdomen and pelvis was performed from lung bases to pubic s ymphysis. Intravenous contrast was administered during this examination. Portal venous imaging was o btained. Axial, coronal and sagittal multiplanar reformats were performed by the technologist on a R2G workstation. Radiation Dose : 1. Abdomen/Pelvis: CTDIvol 15 mGy, DLP 838 mGy*cm. Findings: Lung Bases: Trace left pleural effusion. Liver: The liver is normal in size. No focal lesions. Normal hepatic vascular enhancement. Gallbladder and Biliary Tree: Unremarkable Spleen: Unremarkable Pancreas: The pancreas is normal in appearance without focal lesions or abnormal enhancement. Adrenal Glands: Unremarkable Kidneys: No hydronephrosis. Unchanged 0.4 cm nonobstructing stone in the right midpole. Bladder: Right posterolateral bladder diverticulum measures 5.0 cm. Bowel: Large hiatal hernia. Diverticulosis. The appendix is not visualized; however, no secondary fin dings of acute appendicitis identified. Ascites: Absent Lymphadenopathy: No mesenteric, retroperitoneal or periportal lymphadenopathy. Abdominal Wall and Mesentery: Small to moderate right fat containing inguinal hernia. Small right hyd rocele. Vasculature: The visualized abdominal aorta is normal in size and caliber. Abdominal and pelvic vess els demonstrate normal enhancement. Pelvic Organs: Unremarkable Musculoskeletal: No aggressive focal bony lesions, acute fractures or dislocation. Chronic compressio n fracture of the L4 vertebral body. IMPRESSION: Small right hydrocele, partially imaged. Large hiatal hernia. Unchanged 0.4 cm nonobstructing stone in the right midpole kidney. Overall, findings are not significantly changed since CT dated 07/18/2024. Radiation optimization: All CT scans at this facility use at least one of these dose optimization maddy hniques: automated exposure control mA and/or kV adjustment per patient size (includes targeted exam s where dose is matched to clinical indication) or iterative reconstruction.
[2024-07-23 10:06] LABS: UA COLLECTION TYPE NON-SPECIFIED
[2024-07-23 10:07] LABS: BACTERIA,URINE FEW /HPF (Neg); CLARITY,URINE SLIGHTLY CLOUDY (Clear); RBC,URINE NONE SEEN /HPF (0-2); SQUAMOUS EPITHELIAL CELL,UR FEW /LPF (FEW); TRANSITIONAL EPI CELLS,URINE FEW /HPF; WBC,URINE 0-4 /HPF (0-4)
[2024-07-23 10:14] LABS: URINE AMPHETAMINE SCREEN NEGATIVE (Neg); URINE BARBITUATE SCREEN NEGATIVE (Neg); URINE BENZODIAZEPINES SCREEN NEGATIVE (Neg); URINE CANNABINOID SCREEN NEGATIVE (Neg); URINE COCAINE SCREEN NEGATIVE (Neg); URINE METHADONE SCREEN NEGATIVE (Neg); URINE OPIATE SCREEN NEGATIVE (Neg); URINE PHENCYCLIDINE SCREEN NEGATIVE (Neg)
[2024-07-23 11:08] VITALS: TEMP 97.9
== END 2024-07-23 11:34 | disposition home or self-care (01) ==
LOC: ER 07:44
DX: R10.9 Unspecified abdominal pain (principal); F20.9 Schizophrenia, unspecified
CPT/HCPCS: 74177; 80053; 80305; 81001; 83690; 83735; 84484; 85025; 96374; 99285; J1885; Q9967; 85007

== ENCOUNTER 2025-01-28 11:32 | Emergency (ER) | payer OTHER, MEDICARE ==
[~2025-01-28] VITALS: Ht 160 cm; Wt 82.0 kg
[2025-01-28 11:36] VITALS: TEMP 98.1
[2025-01-28 12:08] LABS: MEAN PLATELET VOLUME 8.3 FL (7.4-10.4); RED CELL DISTRIBUTION WIDTH 16.2 % (11.5-14.5)
[2025-01-28 12:21] LABS: CREATININE 0.91 MG/DL (0.60-1.10); TOTAL CARBON DIOXIDE 34.1 MMOL/L (24-32); eCRCL 57 ML/MIN; eGFR 81 ML/MIN
--- NOTE | 2025-01-28 13:23 | Physician Documentation ---
History of Present Illness Chief Complaint: Flank Pain Stated Complaint: ABD PAIN Time Seen by MD: 13:23 Mode of Arrival: EMS HPI History of gastric ulcers, GI bleed, GERD presents for several days of right flank pain. No fevers no nausea no vomiting no chest pain no shortness of breath. He also reports loose stools over the last several days as well. Denies any dysuria or hematuria. No history of similar symptoms. Symptoms rated as mild to moderate with no exacerbating factors Reviewed discharge summary July 2024 EGD performed nonbleeding gastric ulcers Medication Reconciliation Allergies: Coded Allergies: No Known Allergies (Unverified , 07/23/24) Scheduled Gabapentin (Gabapentin), 1 CAP PO HS, (Reported) Pantoprazole Sodium (PROTONIX tablet), 40 MG PO BID Quetiapine Fumarate* (Seroquel*), 1 TAB PO HS, (Reported) Past Medical History Past Medical History: Chronic Pain Past Surgical History: no surgical history Patient History: FH: breast cancer MOTHER Alcohol Use: None Drug Use: none Lives with: Alone Lives In: Home Review of Systems All Other Systems at this time: Reviewed and Negative Physical Exam Vital Signs: Temperature: 98.1, Source: Oral, Heart Rate: 77, Respiratory Rate: 16, BP: 130/86, Pulse Oximetry: 97, Weight: 82.000 Oxygen Flow Rate: 0 Physical Exam Well-appearing no acute distress resting comfortably in bed Moist mucous membranes head atraumatic Neck no JVD Pulmonary clear to auscultation bilaterally Cardiac no murmur Abdomen is soft nontender Right CVA tenderness Skin warm well-perfused Extremities no edema Progress Results/Orders Reviewed/noted all lab results: Yes Results/Orders Orders - GEO KAM MD Urinalysis, Cult If Indicated (01/28/25 11:45) Completed Orders - GEO KAM MD Cbc/Diff (01/28/25 11:45) BMP (01/28/25 11:45) Lipase (01/28/25 11:45) CMP (01/28/25 11:45) Vital Signs 01/28/25 01/28/25 01/28/25 11:36 11:41 12:18 Temp 98.1 Pulse 79 77 Resp 18 18 16 B/P (MAP) 135/88 130/86 (101) Pulse Ox 96 97 O2 Flow Rate 0 0 Laboratory Tests Test 01/28/25 11:52 White Blood Count 5.8 Red Blood Count 5.34 Hemoglobin 13.9 L Hematocrit 42.5 Mean Corpuscular Volume 79.5 Mean Corpuscular Hemoglobin 25.9 L Mean Corpuscular Hemoglobin Concent 32.7 L Red Cell Distribution Width 16.2 H Platelet Count 213 Mean Platelet Volume 8.3 Neutrophils (%) (Auto) 68.3 Lymphocytes (%) (Auto) 21.9 Monocytes (%) (Auto) 8.6 Eosinophils (%) (Auto) 1.0 Basophils (%) (Auto) 0.2 Neutrophils # (Auto) 3.9 Lymphocytes # (Auto) 1.3 Monocytes # (Auto) 0.5 Eosinophils # (Auto) 0.1 Basophils # (Auto) 0.0 CBC Comment Sodium Level 141 Potassium Level 4.0 Chloride Level 103 Carbon Dioxide Level 34.1 H Anion Gap 4 L Blood Urea Nitrogen 14 Creatinine 0.91 Estimated GFR/1.73 m2 81 BUN/Creatinine Ratio 15.4 Glucose Level 93 Calcium Level 9.1 Total Bilirubin 0.5 Aspartate Amino Transf (AST/SGOT) 21 Alanine Aminotransferase (ALT/SGPT) 25 Alkaline Phosphatase 137 H Total Protein 7.5 Albumin 3.9 Globulin 3.6 Albumin/Globulin Ratio 1.1 Lipase 43 Chemistry Comments EKG/XRAY/CT/US/VASC/MRI CT : Impression CT independently interpreted by myself shows no perforation or free air Medical Decision Making Additional information obtaine: N/A Findings 74-year-old male history of GERD and gastric ulcers presents today for several days of flank pain. Vitals unremarkable. UA infected. CT abdomen and pelvis showing cystitis no stone. We will discharge on antibiotics Differential Dx:Considerations: Cholangitis, Cholelithasis, Constipation Departure Disposition: HOME / SELF CARE / HOMELESS Impression: Primary Impression: Cystitis Referrals: NO PRIMARY CARE PROVIDER (PCP) Prescriptions Cephalexin (Cephalexin) 500 Mg Capsule 1 CAP PO Q6H for 7 Days, #28 CAP Prov: GEO KAM MD 01/28/25 Signature Scribe Signature: na Attestation: GEO Spicer MD Jan 28, 2025 13:23
[2025-01-28] MEDS ORDERED: iohexol 300mg/ml 100ml inj. ONE (13:43)
[2025-01-28 14:06] LABS: LEUKOCYTE ESTERASE ,URINE SMALL (Neg); NITRITES, URINE NEGATIVE (Neg); OCCULT BLOOD,URINE TRACE-INTACT (Neg)
[2025-01-28 14:12] LABS: UA COLLECTION TYPE URINAL
[2025-01-28 14:14] LABS: MUCUS STRANDS NONE SEEN /LPF (Neg); SQUAMOUS EPITHELIAL CELL,UR MODERATE /LPF (FEW)
--- NOTE | 2025-01-28 14:40 | RADIOLOGY REPORT ---
Exam: CT CT ABDOMEN PELVIS W/ IV CONTRAST History: abdominal pain Comparison Study: CT CT ABDOMEN PELVIS W/ IV CONTRAST on DOS: 07/23/24, CT CT ABDOMEN PELVIS W/ IV CONTRAST on DOS: 07/18/24 TECHNIQUE: Multidetector CT of the abdomen and pelvis with IV contrast. Axial, coronal and sagittal multiplanar reformats were obtained from the axial data set by the technologist. Radiation Dose Information: CT Dose: CTDI volume is 15.81 mGy. Dose-length product is 813.69 mGy*cm FINDINGS: Bibasilar atelectasis. Partially visualized heart is unremarkable. Hepatic steatosis. Subcentimeter hypodense hepatic lesions that are too small to characterize. Calcified granulomas within the spleen. Otherwise, liver, spleen, gallbladder, pancreas and adrenal glands unremarkable. 1.4 cm exophytic right posterior renal cyst with 1.5 cm right perineal parapelvic cyst. Punctate nonobstructing right renal calculus. Mild left renal pelviectasis. Otherwise, Kidneys and Ureters unremarkable. Wall thickening of the Urinary bladder 4 x 4.6 cm right-sided urinary bladder diverticulum. Minimal fat stranding adjacent to the urinary bladder. Prostate is unremarkable with focus of calcification. Large hiatal hernia containing the entire stomach majority of the pancreas mesenteric fat. The stomach is otherwise unremarkable. The small bowel loops unremarkable. Appendix is unremarkable. Colonic diverticulosis without diverticulitis. The Large bowel is otherwise unremarkable. Small to moderate amount of fecal material within the colon. No evidence of intraperitoneal free air or free fluid. No evidence of aortic aneurysm or dissection. Minimal atherosclerotic calcification of the aorta. No significant lymphadenopathy. Tiny fat containing umbilical hernia. Trace left-sided hydrocele. Mild midline lower back nonspecific subcutaneous fat stranding. Progression of the compression fracture of L4 with about 50% loss of central vertebral body height. Diffuse demineralization. Sclerotic foci of the left pubic bone and left femoral head which may represent small bone islands. IMPRESSION: Right-sided urinary bladder diverticulum with mild wall thickening of the urinary bladder and associated minimal adjacent fat stranding. Recommend correlation with urinalysis for cystitis. Large hiatal hernia. Trace left-sided hydrocele Hepatic steatosis with subcentimeter hypodense hepatic lesions that are too small to characterize. Right renal cysts with nonobstructing right renal calculus. Left renal pelviectasis with no obstructing calculus noted. Colonic diverticulosis without diverticulitis.
[2025-01-28] MEDS ORDERED: CEPH500C81 PO (15:48)
[2025-01-28 16:07] VITALS: BP 98/81; PULSE 89; RESP 14; O2SAT 94
== END 2025-01-28 16:00 | disposition home or self-care (01) ==
LOC: ER 11:32
DX: N30.90 Cystitis, unspecified without hematuria (principal); Z88.8 Allergy status to other drugs, medicaments and biological substances
CPT/HCPCS: 36415; 74177; 80053; 81001; 83690; 85025; 87088; 99285; Q9967